=== PATIENT | female | born 1930 | race Caucasian/White ===

== ENCOUNTER 2017-10-02 16:00 | Emergency (ER) | payer OTHER, MEDICARE ==
--- NOTE | 2017-10-02 16:20 | PDOC ---
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 Patient reports attempting to carry mail into home 1 hour [employer]. When she opened her door, she reports falling sideways and landing onto her right side , hitting her right eye on the carpeted floor. Was able to ambulate following event. Ambulates with walker. Denies LOC, vision change, hearing loss, MYERS, N/V, neck pain, neck stiffness, tinnitus, head laceration. Denies F/C, N/V, vision disturbance, photophobia, CP, SOB, abdominal pain, diarrhea, constipation, urinary complaints, weakness, lightheadedness, sensory changes. H/o fall 5-6 months ago. PMHx: as noted above. On ASA ROS: as noted above SHx: Denies Etoh, IVDA, tobacco. <Milton Argueta - Last Filed: 10/02/17 17:40> <Gama Jean - Last Filed: 10/02/17 18:45> - General Chief Complaint: Injury Stated Complaint: HEAD INJURY Time Seen by Provider: 10/02/17 16:02 Past History - Past Medical History Cardiac Disorders: Yes (AFIB) CVA: Yes (HEMORRHAGIC) COPD: No DVT: Yes Thyroid Disease: Yes - Suicide/Smoking/Psychosocial Hx Smoking History: Unknown if ever smoked Have you smoked in the past 12 months: No Information on smoking cessation initiated: No <iMlton Argueta - Last Filed: 10/02/17 17:40> <Gama Jean - Last Filed: 10/02/17 18:45> - Past Medical History Allergies/Adverse Reactions: Allergies Allergy/AdvReac Type Severity Reaction Status Date / Time Sulfa (Sulfonamide Allergy Verified 10/02/17 16:07 Antibiotics) Home Medications: Ambulatory Orders Aspirin [Ecotrin] 81 mg PO DAILY 10/02/17 Digoxin [Lanoxin -] 0.125 mg PO DAILY 10/02/17 Furosemide [Lasix] 10 mg PO Q2D 10/02/17 Levothyroxine [Synthroid -] 12.5 mcg PO DAILY 10/02/17 Review of Systems - Review of Systems Comments:: 10/02/17 16:18 GENERAL/CONSTITUTIONAL: No fever or chills. No weakness. HEAD, EYES, EARS, NOSE AND THROAT: + R eye pain/injury. No change in vision. No ear pain or discharge. No sore throat. CARDIOVASCULAR: No chest pain or shortness of breath. RESPIRATORY: No cough, wheezing, or hemoptysis. GASTROINTESTINAL: No nausea, vomiting, diarrhea or constipation. GENITOURINARY: No dysuria, frequency, or change in urination. MUSCULOSKELETAL: No joint or muscle swelling or pain. No neck or back pain. SKIN: No rash NEUROLOGIC: No headache, vertigo, loss of consciousness, or change in strength/ sensation. ENDOCRINE: No increased thirst. No abnormal weight change HEMATOLOGIC/LYMPHATIC: No anemia, easy bleeding, or history of blood clots. ALLERGIC/IMMUNOLOGIC: No hives or skin allergy. <Milton Argueta - Last Filed: 10/02/17 17:40> *Physical Exam - Vital Signs Last Vital Signs Temp Pulse Resp BP Pulse Ox 97.7 F 98 H 18 156/96 95 10/02/17 16:05 10/02/17 16:05 10/02/17 16:05 10/02/17 16:05 10/02/17 16:05 - Physical Exam Comments: 10/02/17 16:18 GENERAL: Awake, alert, and fully oriented, in no acute distress HEAD: No signs of trauma, normocephalic, atraumatic EYES: PERRLA, EOMI, sclera anicteric, conjunctiva clear ENT: Auricles normal inspection, hearing grossly normal, nares patent, oropharynx clear without exudates. Moist mucosa. EYE: 20/30 OU. R eye periorbital ecchymosis. Peripheral visual field inact. PEERLA, EOMI. NECK: Normal ROM, supple, no lymphadenopathy, JVD, or masses LUNGS: No distress, speaks full sentences, clear to auscultation bilaterally HEART: Regular rate and rhythm, normal S1 and S2, no murmurs, rubs or gallops, peripheral pulses normal and equal bilaterally. ABDOMEN: Soft, nontender, normoactive bowel sounds. No guarding, no rebound. No masses EXTREMITIES : Normal inspection, Normal range of motion, no edema. No clubbing or cyanosis. HIP: Absent greater trochanter ttp. Normal active and passive ROM in all directions. Able to ambulate with cane with no assistance at bedside. Gait observed with nml lift, stepoff, and stride. KNEE R: Nml active and passive ROM. Absent effusion, echymoiss, or abrasion. + R tibeal plateua ttp. Absent clicking, ant/post drawer sign or varus/valgus deformity. NEUROLOGICAL: Cranial nerves II through XII grossly intact. Normal speech, normal gait, no focal sensorimotor deficits SKIN: Warm, Dry, normal turgor, no rashes or lesions noted <Milton Argueta - Last Filed: 10/02/17 17:40> - Vital Signs Last Vital Signs Temp Pulse Resp BP Pulse Ox 97.7 F 98 H 18 156/96 95 10/02/17 16:05 10/02/17 16:05 10/02/17 16:05 10/02/17 16:05 10/02/17 16:05 <Gama Jean S - Last Filed: 10/02/17 18:45> ED Treatment Course - RADIOLOGY Radiology Studies Ordered: Category Date Time Status FACIAL BONES CT W/O CONTRAST [CT] Stat CT Scan 10/02/17 16:[address] WITHOUT CONTRAST [CT] Stat CT Scan 10/02/17 16:02 Taken <Milton Argueta - Last Filed: 10/02/17 17:40> Medical Decision Making - Medical Decision Making 10/02/17 17:14 87 yo F with h/o RA, PE, A-fib ( on digoxin), 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 VSS, AF, A&OX3, GCS 15. No acute vision change, visual quiros intact. R peirobital ecchymosis noted on PE. No evidence of septal hematoma. No evidence of globe rupture/tear drop pupil, propotosis, or increased IOP. Low suspicion of vitreous hemorrhage, retinal detachment, corneal abrasion. CTH r/o hematoma, fracture, or hemorrhage. 10/02/17 17:42 ED Course: CTH, CT Facial bones Patient seen ambulating ED with cane. VSS. CTH: Chronic left TAMMY infarct. No acute intracranial changes. CT FACIAL BONES: Soft tissue hematoma L frontal bone. R HIP/PELVIS RAD: R KNEE RAD: Pt. stable for d/c with return precautions. Advised to f/u with PMD. <Milton Argueta - Last Filed: 10/02/17 17:40> *DC/Admit/Observation/Transfer - Attestations Physician Attestion: 10/02/17 16:19 I attest to the information provided in this note. <Milton Argueta - Last Filed: 10/02/17 17:40> <Gama Jean - Last Filed: 10/02/17 18:45> Diagnosis at time of Disposition: Eye injury, non-penetrating Qualifiers: Encounter type: initial encounter Laterality: right Qualified Code(s): S05.91XA - Unspecified injury of right eye and orbit, initial encounter - Discharge Dispostion Disposition: HOME Condition at time of disposition: Stable - Referrals Referrals: Kristopher Gibson MD [Primary Care Provider] - - Patient Instructions Printed Discharge Instructions: DI for Eye Contusion, How to Prevent Falls Additional Instructions: Please return to the emergency department with any new or worsening symptoms or concerns. Please follow up with your primary care physician within 72 hours. - Post Discharge Activity Attending Attestation - ED Attending Attestation I have performed the following: I have examined & evaluated the patient, The case was reviewed & discussed with the resident, I agree w/resident's findings & plan, Exceptions are as noted <Gama Jean S - Last Filed: 10/02/17 18:45>
[2017-10-02 16:28] VITALS: BP 156/96; PULSE 98; TEMP 97.7; BMI 28.7
--- NOTE | 2017-10-02 18:00 | PDOC ---
Attending Attestation - Resident Resident Name: Milton Argueta - ED Attending Attestation I have performed the following: I have examined & evaluated the patient, The case was reviewed & discussed with the resident, I agree w/resident's findings & plan, Exceptions are as noted - HPI HPI: 10/02/17 18:03 The patient is an 87 year old female accompanied with her daughter, with a significant past medical history of atrial fibrillation, CVA (hemorrhagic), DVT and thyroid disease, who presents to the emergency department for evaluation of right orbit pain s/p fall. The patient reports falling this morning trying to move mail into her home, landing sideway on her right eye on carpeted floor. She reports facial bruising, but denies loss of consciousness. She reports being able to ambulate after the fall, although, she normally uses a walker. Allergies: Sulfonamide antibiotics. Surgical History: Denies. - Physicial Exam PE: GENERAL: Well developed, well nourished. Awake and alert. No acute distress. HEENT: (+)Right eye periorbital ecchymosis. Peripheral visual field intact. (+)20/30 OU. Normocephalic, atraumatic. PERRLA, EOMI. No conjunctival pallor. Sclera are non-icteric. Moist mucous membranes. Oropharynx is clear. NECK: Supple. Full ROM. No JVD. Carotid pulses 2+ and symmetric, without bruits. No thyromegaly. No lymphadenopathy. CARDIOVASCULAR: Regular rate and rhythm. No murmurs, rubs, or gallops. Distal pulses are 2+ and symmetric. PULMONARY: No evidence of respiratory distress. Lungs clear to auscultation bilaterally. No wheezing, rales or rhonchi. ABDOMINAL: Soft. Non-tender. Non-distended. No rebound or guarding. No organomegaly. Normoactive bowel sounds. MUSCULOSKELETAL Normal range of motion at all joints. No bony deformities or tenderness. No CVA tenderness. EXTREMITIES: No cyanosis. No clubbing. No edema. No calf tenderness. SKIN: Warm and dry. Normal capillary refill. No rashes. No jaundice. NEUROLOGICAL: Alert, awake, appropriate. Cranial nerves 2-12 intact. No deficits to light touch and temperature in face, upper extremities and lower extremities. No motor deficits in the in face, upper extremities and lower extremities. Normoreflexic in the upper and lower extremities. Normal speech. Toes are down- going bilaterally. PSYCHIATRIC: Cooperative. Good eye contact. Appropriate mood and affect. - Critical Care Time Total Critical Care Time: 30 Critical Care Statement: The care of this patient involved high complexity decision making to prevent further life threatening deterioration of the patient 's condition and/or to evaluate & treat vital organ system(s) failure or risk of failure. <Christiano Echevarria - Last Filed: 10/02/17 18:03> - ED Attending Attestation I have performed the following: I have examined & evaluated the patient, The case was reviewed & discussed with the resident, I agree w/resident's findings & plan, Exceptions are as noted - Medical Decision Making Patient will be discharged home with daughter, follow up with PMD 10/02/17 18:46 <Gama Jean - Last Filed: 10/02/17 18:47> Attestations - Attestations Documentation prepared by Christiano Echevarria, acting s medical office technician for Gama Jean MD. <Christiano Echevarria - Last Filed: 10/02/17 18:03>
== END 2017-10-02 18:00 | disposition home or self-care (01) ==
LOC: FER 16:00 → SUPCPDRO 16:00 → FER 18:00
DX: S05.91XA Unspecified injury of right eye and orbit, initial encounter (principal); Z99.89 Dependence on other enabling machines and devices; I48.91 Unspecified atrial fibrillation; E07.9 Disorder of thyroid, unspecified; Z86.718 Personal history of other venous thrombosis and embolism; W18.39XA Other fall on same level, initial encounter; Y93.89 Activity, other specified; Y92.009 Unspecified place in unspecified non-institutional (private) residence as the place of occurrence of the external cause
CPT/HCPCS: 70450-TC; 70486-TC; 73523-TC-FY; 73562-TC-RT-FY; 99281-25